=== PATIENT | female | born 1945 | race Hispanic/Latino ===

== ENCOUNTER → 2017-09-14 | Outpatient (CLI) | payer MEDICARE ==
[~2017-09-14] MED LIST: CETI10CA5 PO; FOLI1TAB15 PO; HYDR200T82 PO; IBUP-2070 PO; METHOTREXATE SQ; PRED2.5T PO
== END | disposition home or self-care (01) ==
LOC: OIH 09:37
PROVIDERS: ATTEND Internal Medicine Critical Care Medicine
DX: G31.9 Degenerative disease of nervous system, unspecified (principal)
CPT/HCPCS: 70450